=== PATIENT | male | born 2000 | race Caucasian/White ===

== ENCOUNTER → 2021-03-24 | Outpatient (CLI) | payer MEDICAID ==
[~2021-03-24] MED LIST: ACHD5005 PO; CEPH250S PO
== END ==
LOC: LABNPT 10:22
PROVIDERS: ATTEND Pediatrics
DX: L03.115 Cellulitis of right lower limb (principal)
CPT/HCPCS: 87070; 87205

== ENCOUNTER 2021-03-27 08:32 | Outpatient (RCR) | payer MEDICAID ==
[2021-03-25] MEDS: MEROPENEM 2 GM/NS 100 ML IVPB IV SCH ×4 (09:44→20:26)
[2021-03-25 09:52] VITALS: BP 143/73
[2021-03-25 21:13] VITALS: BP 148/79
[2021-03-26] MEDS: MEROPENEM 2 GM/NS 100 ML IVPB IV SCH ×4 (08:51→21:08)
[2021-03-26 08:55] VITALS: BP 128/69
[2021-03-26 21:10] VITALS: BP 134/86
[~2021-03-27] VITALS: Ht 187 cm; Wt 120.0 kg
[2021-03-27 08:30] VITALS: BP 138/81
[2021-03-27] MEDS: MEROPENEM 2 GM/NS 100 ML IVPB IV SCH ×4 (09:23→21:59)
[2021-03-27 22:59] VITALS: BP 154/76
== END 2021-06-23 | disposition home or self-care (01) ==
LOC: SDC 08:32
PROVIDERS: ATTEND Pediatrics
DX: L03.115 Cellulitis of right lower limb (principal)
CPT/HCPCS: 96365

== ENCOUNTER → 2021-04-02 | Outpatient (CLI) | payer MEDICAID ==
--- NOTE | 2021-04-02 10:02 | Diagnostic Imaging Report ---
INDICATION: Pain status post injury. COMPARISON: None. FINDINGS: Multiple radiographic views of the right tibia and fibula were obtained and show no fractures, dislocations, or other acute bony abnormalities. No lytic or blastic osseous lesions are identified. Joint spaces are well maintained throughout. The soft tissues appear unremarkable. No radiopaque foreign bodies are identified. IMPRESSION: Unremarkable radiographic exam of the right tibia and fibula. Please note, osteomyelitis cannot be excluded based on radiographs alone. If there is concern for osteomyelitis, MRI is recommended. Dictated by: Dictated on workstation # [id number]
== END ==
LOC: RAD 08:51
PROVIDERS: ATTEND Pediatrics
DX: S81.831A Puncture wound without foreign body, right lower leg, initial encounter (principal)
CPT/HCPCS: 73590

== ENCOUNTER 2021-07-15 05:48 | Outpatient (CLI) | payer MEDICAID ==
[~2021-07-15] VITALS: Ht 193 cm; Wt 116.6 kg
== END 2021-07-21 08:48 | disposition home or self-care (01) ==
LOC: PREOP 05:48
PROVIDERS: ATTEND Surgery
DX: Z01.818 Encounter for other preprocedural examination (principal)

== ENCOUNTER 2021-07-22 09:24 | Day surgery (SDC) | payer MEDICAID ==
[~2021-07-22] VITALS: Ht 193 cm; Wt 116.6 kg
[2021-07-22] VITALS (11 sets, daily range): BP systolic 111–138; BP diastolic 48–83
[2021-07-22] MEDS ORDERED: ceFAZolin 2 GM IV Premixed 50 ML IV ONE (09:45)
[2021-07-22] MEDS ORDERED: LACTATED RINGERS 1,000 ML IV PRN (09:45)
--- NOTE | 2021-07-22 10:20 | Progress Note-Pre Operative ---
Pre-Operative Progress Note H&P Reviewed The H&P was reviewed, patient examined and no changes noted. Time Seen by Provider: 10:18 Date H&P Reviewed: Jul 22, 2021 Time H&P Reviewed: :18 Pre-Operative Diagnosis: Left wrist mass, site marked ANTIONETTE TENA DO Jul 22, 2021 10:20
[2021-07-22] MEDS ORDERED: MIDAZOLAM 2 MG/2 ML (VERSED) VIAL IVP ONE (10:30)
[2021-07-22] MEDS ORDERED: SCOPOLAMINE 1.5 MG (TRANSDERM-SCOP) PATCH TD ONE (10:30)
[2021-07-22] MEDS ORDERED: FAMOTIDINE 20MG/2ML IV (PEPCID) IVP ONE (10:30)
[2021-07-22] MEDS ORDERED: ONDANSETRON 4 MG/2 ML (SDV) Z0FRAN IVP ONE (10:30)
[2021-07-22] MEDS ORDERED: LIDOCAINE/EPI 1%-1:100,000 (XYLOCAINE) 20ML ONE (12:03)
[2021-07-22] MEDS ORDERED: proPOfol 200 MG/20 ML (DIPRIVAN) VIAL IV ONE (12:25)
[2021-07-22] MEDS ORDERED: ONDANSETRON 4 MG/2 ML (SDV) Z0FRAN ONE (12:25)
[2021-07-22] MEDS ORDERED: fentaNYL INJ 100 MCG/2 ML AMP ONE (12:25)
[2021-07-22] MEDS ORDERED: MIDAZOLAM 2 MG/2 ML (VERSED) VIAL ONE (12:25)
[2021-07-22] MEDS ORDERED: LIDOCAINE PF 2% 5 ML (XYLOCAINE) VIAL ONE (12:25)
--- NOTE | 2021-07-22 13:09 | Progress Note-Post Operative ---
Post-Operative Progess Note Surgeon (s)/Neurophysiology Tech (s) Surgeon ANTIONETTE TENA DO Neurophysiology Tech: YELENA Gerard Pre-Operative Diagnosis Left wrist mass, site marked Post-Operative Diagnosis Same, probable ganglion cyst Procedure & Operative Findings Date of Procedure 07/22/21 Procedure Performed/Findings Exc left wrist mass, probable ganglion cyst Anesthesia Type LMA Estimated Blood Loss Estimated blood loss (mL): scant Specimens/Packing Specimens Removed left wrist mass ANTIONETTE TENA DO Jul 22, 2021 13:09
--- NOTE | 2021-07-22 13:10 | Discharge Inst-Surgical ---
Discharge Inst-Surgical Depart Medication/Instructions New, Converted or Re-Newed RX: Other (Take Ibuprofen and Tylenol at home for pain) Patient Instructions Follow up Appt: Make appointment for 1 week. [phone] Instructions: No lifting greater than 20 pounds. No strenuous activity. May shower in 24 hours, no tub bath or soaking. Use incentive spirometer at home as directed. No Smoking Skin/Wound Care: May remove bandages in am. You need to leave the sutures in place and come in to the office to remove them. Symptoms to Report: Appetite Changes, Extremity Discoloration, Numbness/Tingling, Swelling Increase d, Bleeding Excessive, Eyesight Changes, Pain Increased, Urine Color Change, Constipation(Persistent), Fever over 101 degree F, Pain/Pressure in chest, Urinating Difficulty, Cough Up/Vomit Blood, Heart Beat Irreg/Pounding, Pain/Pressure in jaw, Cramps in feet or legs, Lightheadedness, Pain/Pressure in shoulder, Diarrhea(Persistent), Memory Changes Suddenly, Questions/Concerns, Weight gain consecutive days, Dizziness/Fainting, Nausea/Vomiting, Shortness of Breath, Weight gain over 2 pounds If questions or concerns contact your physician Or seek help at emergency department. Activity Activity as Tolerated: Yes Activity Instructions: Avoid Stress to Incision Driving Instructions: You May Drive Diet Discharge Diet: No Restrictions Diet After 24 Hours: Clear Liquid if Nauseous If Any Problems/Questions/Issu: Contact Your Physician, Go to Emergency Room Skin/Wound Care Infection Signs and Symptoms: Increased Redness, Foul Odor of Wound, Increased Drainage, Skin Itchy or Has a Rash, Increased Swelling, Temperature Above 101 F Bathing Instructions: Shower Ice Pack: Ice On and Off Site ANTIONETTE TENA DO Jul 22, 2021 13:10
[2021-07-22] MEDS ORDERED: SEVOFLURANE (ULTANE) 15 ML INHAL SOLN ONE (13:21)
--- NOTE | 2021-07-22 13:48 | Anesthesia-General Post-Op ---
General Patient Condition Mental Status/LOC: Same as Preop Cardiovascular: Satisfactory Nausea/Vomiting: Absent Respiratory: Satisfactory Pain: Controlled Complications: Absent Post Op Complications Complications None Follow Up Care/Instructions Patient Instructions None needed. Anesthesia/Patient Condition Patient Condition Patient is doing well, no complaints, stable vital signs, no apparent adverse anesthesia problems. No complications reported per nursing. ROXY TELLES CRNA Jul 22, 2021 13:48
[2021-07-22] MEDS ORDERED: ONDANSETRON 4 MG/2 ML (SDV) Z0FRAN IVP PRN (14:00)
[2021-07-22] MEDS ORDERED: PROMETHAZINE INJ 25 MG/ML (PHENERGAN) AMP IVP ONE (14:00)
[2021-07-22] MEDS ORDERED: HYDROmorphone 2 MG/ML VIAL (DILAUDID) IV ONE (14:00)
[2021-07-22] MEDS ORDERED: morphine INJ 10 MG/ML 1ML (SYR OR VIAL) IVP ONE (14:00)
--- NOTE | 2021-07-23 23:19 | OPERATIVE REPORT ---
DATE OF SERVICE: 07/22/2021 PREOPERATIVE DIAGNOSIS: Left wrist mass. POSTOPERATIVE DIAGNOSIS: Left wrist mass, pending pathology. PROCEDURE: Excision of left wrist mass, palpable ganglion cyst. SURGEON: Edd Gama DO CREDIT SUPPORT COUNSELOR: Ramsey Collins MS3. ANESTHESIA: LMA. SPECIMEN: Left wrist mass. BLOOD LOSS: Scant. FLUIDS: Per anesthesia. POSTOPERATIVE CONDITION: Stable. INDICATION FOR PROCEDURE: The patient is a 20-year-old male who has a mass in the left wrist on the plantar aspect just above the thumb pad, removed and sent to pathology. PROCEDURE NOTE: After informed consent was obtained, the patient was brought to the operating room, placed on the table in supine position. He was sterilely prepped and draped in normal fashion. Local lidocaine was used to infiltrate the skin directly above and around this mass, used approximately 10 mL of local, then made an incision with a #15 blade, carried down through the skin into subcutaneous tissue, then deepened down to subcutaneous tissue gently with blunt dissection as well as with Bovie electrocautery, used a hemostat to get down around this. This looked like it may have been a ganglion cyst, started trying to gently move everything out of the way, moving some small veins, dissecting down around this while spreading with the hemostat, made a small hole and got out some clear, almost clear jelly looking substance, grasped this, what looked like a cyst with a hemostat and continued to carefully dissect under and around this, able to finally get this completely removed. There was some minimal bleeding. This was controlled with Bovie electrocautery as well as pressure. Copiously irrigated with normal saline and then elected to close the incision, closing just the skin with 3-0 Prolene 3 vertical mattress sutures. Area was cleaned and dried, dressing placed. The patient tolerated the procedure. Sponge, instrument and needle count correct at the end of the case. Job ID: [id number] DocumentID: [id number] Dictated Date: 07/23/2021 20:16:50 Composing Room Machinist Date: 07/23/2021 23:18:28 Dictated By: EDD GAMA DO MTDD
== END 2021-07-22 15:45 | disposition home or self-care (01) ==
LOC: SDC 09:24
PROVIDERS: ATTEND Surgery
DX: M67.432 Ganglion, left wrist (principal); G43.909 Migraine, unspecified, not intractable, without status migrainosus
CPT/HCPCS: 87081

== ENCOUNTER 2022-01-29 12:18 | Emergency (ER) | payer OTHER, MEDICAID ==
[~2022-01-29] VITALS: Ht 193 cm; Wt 102.0 kg
[2022-01-29 12:30] VITALS: BP 133/74
--- NOTE | 2022-01-29 12:38 | ED Upper Extremity ---
General Chief Complaint: Upper Extremity Stated Complaint: L HAND INJ / PAIN Source: patient Exam Limitations: no limitations History of Present Illness Date Seen by Provider: Jan 29, 2022 Time Seen by Provider: 12:36 Initial Comments To ER with left hand injury. He was at work for bug away at a client's house. The wind caught the door and slammed shut on his left hand where he now has bruising swelling and pain over the dorsal aspect of the fifth MCP joint. No other injury. He does have a small abrasion as well. Onset: just prior to arrival Severity: moderate Pain/Injury Location: left hand Method of Injury: direct blow Modifying Factors: Worse With Movement Allergies and Home Medications Allergies Coded Allergies: No Known Drug Allergies (Unverified , 02/25/11) Patient Home Medication List Home Medication List Reviewed: Yes No Active Prescriptions or Reported Meds Review of Systems Constitutional: see HPI EENTM: see HPI Respiratory: no symptoms reported Cardiovascular: no symptoms reported Genitourinary: no symptoms reported Musculoskeletal: no symptoms reported Skin: no symptoms reported Psychiatric/Neurological: No Symptoms Reported Past Sqtshcd-Xczoll-Tlnxut Hx Immunizations Up To Date Tetanus Booster (TDap): Less than 5yrs PED Vaccines UTD: Yes First/Initial COVID19 Vaccinat: NO Seasonal Allergies Seasonal Allergies: No Past Medical History Surgeries: Yes (WISDOM TEETH) Respiratory: No Cardiac: No Neurological: Yes (HEADACHES (SINUS)) Headaches /Migraines Genitourinary: No Gastrointestinal: No Musculoskeletal: No Endocrine: No HEENT: Yes (WEARS GLASSES) Loss of Vision: Denies Hearing Impairment: Denies Cancer: No Psychosocial: No Integumentary: No Blood Disorders: No Family Medical History No Pertinent Family Hx Physical Exam Vital Signs Vital Signs - First Documented 01/29/22 12:30 Temp 36.3 Pulse 78 Resp 16 B/P (MAP) 133/74 (93) Pulse Ox 97 O2 Delivery Room Air Capillary Refill : Height, Weight, BMI Height: 5'10" Weight: 190lbs. oz. 86.033663jp; 31.30 BMI Method: General Appearance: WD/WN, no apparent distress HEENT: PERRL/EOMI, normal ENT inspection Neck: non-tender, full range of motion Respiratory: no respiratory distress, no accessory muscle use Gastrointestinal: normal bowel sounds, non tender, soft Hand: Left, limited ROM, swelling (Ecchymosis, swelling limited range of motion at the dorsal aspect left fifth MCP joint. Normal sensation capillary refill at the fingertip. Just proximal to this over the lateral aspect of the hypothenar eminence is a small abrasion.) Neurologic/Tendon: normal sensation, normal motor functions Neurologic/Psychiatric: alert, normal mood/affect, oriented x 3 Skin: normal color, warm/dry Progress/Results/Core Measures Results/Orders My Orders Orders - ALEXIA CAI APRN Hand, Left, 3 Views (01/29/22 12:35) Vital Signs/I&O 01/29/22 12:30 Temp 36.3 Pulse 78 Resp 16 B/P (MAP) 133/74 (93) Pulse Ox 97 O2 Delivery Room Air Departure Impression Primary Impression: Contusion of hand Disposition: 01 HOME, SELF-CARE Condition: Stable Departure-Patient Inst. Decision time for Depature: 12:52 Referrals: KALINA CASTELLANO MD (PCP/Family) Primary Care Physician Patient Instructions: Contusion (DC) Add. Discharge Instructions: ice pack to the area Tylenol and ibuprofen for pain return to ER for any concerns see your doctor next week. All discharge instructions reviewed with patient and/or family. Voiced understanding. Scripts No Active Prescriptions or Reported Meds ALEXIA CAI APRN Jan 29, 2022 12:38
--- NOTE | 2022-01-29 12:59 | Diagnostic Imaging Report ---
Indication: Left hand pain. 3 views of the left hand demonstrate no fracture or dislocation. Articular surfaces are normal. No bony erosion seen. There is no foreign body. Impression: No fracture or dislocation. Dictated by: Dictated on workstation # [id number]
== END 2022-01-29 13:17 | disposition home or self-care (01) ==
LOC: EDUNIT# 12:18 → ER 12:19
DX: S60.222A Contusion of left hand, initial encounter (principal); W23.1XXA Caught, crushed, jammed, or pinched between stationary objects, initial encounter; Y92.59 Other trade areas as the place of occurrence of the external cause; Y99.0 Civilian activity done for income or pay
CPT/HCPCS: 73130

== ENCOUNTER 2022-03-29 11:08 | Emergency (ER) | payer MEDICAID ==
[~2022-03-29] VITALS: Ht 193 cm; Wt 104.0 kg
[2022-03-29] MEDS ORDERED: MUPIROCIN 2% OINT 22 GM (BACTROBAN) TUBE TOP ONE (12:00)
--- NOTE | 2022-03-29 12:30 | ED Upper Extremity ---
General Chief Complaint: Upper Extremity Stated Complaint: SORE ON LEFT WRIST Nursing Triage Note: Pt had cyst removed from L wrist previously, pt has noted some bubbling and possible new cyst on L wrist. Pt requesting to have area drained. Source: patient Exam Limitations: no limitations History of Present Illness Date Seen by Provider: Mar 29, 2022 Time Seen by Provider: 12:20 Initial Comments This is a well-appearing 21-year-old male who presents to the ER for complaints of cyst on his left wrist and pain. States that this has been present for the past month however it is having increasing pain. He had the cyst drained and removed by Dr. Gama a few months ago. No fever, chills, nausea, vomiting, redness to the surrounding tissue. Allergies and Home Medications Allergies Coded Allergies: No Known Drug Allergies (Unverified , 02/25/11) Patient Home Medication List Home Medication List Reviewed: Yes No Active Prescriptions or Reported Meds Review of Systems Constitutional: no symptoms reported Skin: see HPI Past Gluximo-Ctcfcz-Gqtbmi Hx Immunizations Up To Date Tetanus Booster (TDap): Less than 5yrs PED Vaccines UTD: Yes First/Initial COVID19 Vaccinat: NO Seasonal Allergies Seasonal Allergies: No Past Medical History Surgeries: Yes (WISDOM TEETH) Respiratory: No Cardiac: No Neurological: Yes (HEADACHES (SINUS)) Headaches /Migraines Genitourinary: No Gastrointestinal: No Musculoskeletal: No Endocrine: No HEENT: Yes (WEARS GLASSES) Loss of Vision: Denies Hearing Impairment: Denies Cancer: No Psychosocial: No Integumentary: No Blood Disorders: No Family Medical History No Pertinent Family Hx Physical Exam Vital Signs Vital Signs - First Documented 03/29/22 11:38 Temp 37.1 Pulse 59 Resp 18 B/P (MAP) 126/77 (93) Pulse Ox 97 O2 Delivery Room Air Capillary Refill : Less Than 3 Seconds Height, Weight, BMI Height: 5'10" Weight: 190lbs. oz. 86.308242bv; 27.00 BMI Method: General Appearance: WD/WN, no apparent distress HEENT: PERRL/EOMI, normal ENT inspection Neck: full range of motion, normal inspection Respiratory: no respiratory distress, no accessory muscle use Shoulder: normal inspection, no evidence of injury Elbow/Forearm: normal inspection, no evidence of injury Wrist: Yes normal ROM, Yes pain (left wrist ganglion cyst and base of thumb on left wrist ) Hand: normal inspection, no evidence of injury Neurologic/Tendon: normal sensation, normal motor functions Neurologic/Psychiatric: no motor/sensory deficits, alert, normal mood/affect, oriented x 3 Skin: normal color, warm/dry Procedures/Interventions I&D : Blade Size: Blunt tip needle I & D Procedure: betadine prep Progress Clean site with saline and soap, dried, applied iodine over the ganglion cyst, utilized a blunt tipped needle to penetrate the cyst, was able to express small amount of clear viscous drainage. Tolerated well. Progress/Results/Core Measures Results/Orders My Orders Orders - FERNANDA SCHULTZ APRN Mupirocin Ointment (Bactroban Ointment (03/29/22 12:00) Vital Signs/I&O Blood Pressure Mean: 93 Progress Progress Note : Progress Note Site was cleansed with iodine swabs, sterile technique utilized to insert blunt tipped needle into center of cyst, removed quite a bit of viscous clear drainage. Departure Impression Primary Impression: Ganglion cyst Disposition: 01 HOME, SELF-CARE Condition: Improved Departure-Patient Inst. Decision time for Depature: 12:27 Referrals: KALINA CASTELLANO MD (PCP/Family) Primary Care Physician Patient Instructions: Ganglion Cyst (DC) Add. Discharge Instructions: Plan: 1. Follow up with Dr. Gama for any persistent symptoms. 2. We did make an incision in your wrist, monitor for signs of infection: redness, swelling, drainage, fever. Follow up with your doctor or return if symptoms develop. 3. Wash gently daily with mild soap and water and apply Mupirocin ointment to prevent infection until site closes. 4. Return for any new, concerning, or worsening symptoms. All discharge instructions reviewed with patient and/or family. Voiced underst anding. Scripts No Active Prescriptions or Reported Meds FERNANDA SCHULTZ APRN Mar 29, 2022 12:30
[2022-03-29 12:35] VITALS: BP 126/77
== END 2022-03-29 12:35 | disposition home or self-care (01) ==
LOC: EDUNIT# 11:08 → ER 11:10
DX: M67.432 Ganglion, left wrist (principal); Z28.311 Partially vaccinated for COVID-19

== ENCOUNTER 2023-04-25 19:55 | Emergency (ER) | payer OTHER, MEDICAID ==
[~2023-04-25] VITALS: Ht 190.5 cm; Wt 99.7 kg
--- NOTE | 2023-04-25 20:07 | ED Lower Extremity ---
General Chief Complaint: Lower Extremity Stated Complaint: FALL/RIGHT ANKLE INJURY Source: patient Exam Limitations: no limitations History of Present Illness Date Seen by Provider: Apr 25, 2023 Time Seen by Provider: 20:07 Initial Comments 22-year-old male presents to the emergency room with a chief complaint of right lateral ankle pain. He was working in a home as he works for a [employer] company and slid down a flight of about 12 stairs. He states his right leg went behind him and ankle twisted. He has been able to bear weight. He states he has had prior fracture to the ankle without operative repair. He denies numbness weakness or tingling. Denies knee injury. No back pain. No head injury reported, no loss of consciousness. Onset: this evening Severity: moderate Pain/Injury Location: right ankle Method of Injury: fell Modifying Factors: Improves With Immobilization; Worse With Movement Allergies and Home Medications Allergies Coded Allergies: No Known Drug Allergies (Unverified , 02/25/11) Patient Home Medication List Home Medication List Reviewed: Yes No Active Prescriptions or Reported Meds Review of Systems Constitutional: see HPI EENTM: No blurred vision, No double vision Respiratory: No no symptoms reported Cardiovascular: No no symptoms reported Gastrointestinal: No no symptoms reported Musculoskeletal: No back pain; joint pain (right lateral ankle); No neck pain Skin: No no symptoms reported Psychiatric/Neurological: Denies Headache, Denies Numbness, Denies Paresthesia Past Beozmmf-Tqcoeg-Dqeliz Hx Immunizations Up To Date Tetanus Booster (TDap): Less than 5yrs PED Vaccines UTD: Yes First/Initial COVID19 Vaccinat: NO Second COVID19 Vaccination Enrico: NO Third COVID19 Vaccination Date: NO Seasonal Allergies Seasonal Allergies: No Past Medical History Surgeries: Yes (WISDOM TEETH) Respiratory: No Cardiac: No Neurological: Yes (HEADACHES (SINUS)) Headaches /Migraines Genitourinary: No Gastrointestinal: No Musculoskeletal: No Endocrine: No HEENT: Yes (WEARS GLASSES) Loss of Vision: Denies Hearing Impairment: Denies Cancer: No Psychosocial: No Integumentary: No Blood Disorders: No Family Medical History No Pertinent Family Hx Physical Exam Vital Signs Vital Signs - First Documented 04/25/23 20:00 Pulse 84 B/P (MAP) 144/84 (104) Pulse Ox 97 O2 Delivery Room Air Capillary Refill : Height, Weight, BMI Height: 5'10" Weight: 190lbs. oz. 86.531087bn; 27.00 BMI Method: General Appearance: WD/WN, no apparent distress HEENT: PERRL/EOMI Neck: full range of motion Cardiovascular: regular rate, rhythm Respiratory: lungs clear, normal breath sounds, no respiratory distress, no accessory muscle use Back: normal inspection, no vertebral tenderness Hips: bilateral hip normal range of motion Legs: bilateral leg normal range of motion Knees: bilateral knee non-tender, bilateral knee normal inspection, bilateral knee normal range of motion, bilateral knee no evidence of injury Ankles: left ankle non-tender, left ankle normal inspection, left ankle normal range of motion, left ankle no evidence of injury; right ankle limited range of motion, right ankle pain, right ankle swelling (mild lateral malleolar tenderness and swelling) Feet: bilateral foot non-tender, bilateral foot normal inspection, bilateral foot no evidence of injury Neurologic/Tendon: normal sensation, normal motor functions, normal tendon functions Neurologic/Psychiatric: alert, normal mood/affect, oriented x 3 Skin: normal color, warm/dry, other (small abrasion just above the lateral malleolus lat right ankle - appears old) Progress/Results/Core Measures Results/Orders My Orders Orders - ELIE FONSECA MD Ankle, Right, 3 Views (04/25/23 20:12) Ibuprofen Tablet (Motrin Tablet) (04/25/23 20:15) Vital Signs/I&O 04/25/23 20:00 Pulse 84 B/P (MAP) 144/84 (104) Pulse Ox 97 O2 Delivery Room Air Progress Progress Note : Time: 20:39 Progress Note Patient seen and evaluated by me. Evaluation today includes physical exam, three-view x-ray of the right ankle. Pertinent physical exam findings, well- developed well-nourished male in no acute distress. Tenderness to palpation over the lateral malleolus of the right ankle with mild swelling. Limited range of motion due to pain. Ankle joint is stable. Small abrasion noted just superior and anterior to the malleolus, this appears old. Distal neurovascularly intact to the right foot. Differential diagnosis based on history and physical, ankle sprain versus fibular fracture 3 views of the right ankle reviewed and interpreted by me. No fracture or dislocation or abnormalities noted in the ankle joint. Patient is treated with an Will wrap. He is given 800 mg of ibuprofen in the emergency department. Advised to elevate and ice the ankle over the next 24 hours. Ambulation is encouraged. No indications for crutches. Patient is given return precautions and both verbal and written format. All questions are sought and answered. Diagnostic Imaging Diagonstic Imaging: Xray Comments 3v right ankle x ray - reviewed and independently interpreted by me - no fra cture or dislocation. Departure Impression Primary Impression: Sprain and strain of ankle Disposition: HOME, SELF-CARE Condition: Stable Departure-Patient Inst. Decision time for Depature: 20:36 Referrals: NO,LOCAL PHYSICIAN (PCP/Family) Primary Care Physician Patient Instructions: Ankle Sprain ED Add. Discharge Instructions: Elevate the ankle/leg over the next 24 hours while at rest. Ice packs off and on over the next 24 hours for swelling. Use it 20 min at a time 4-6 times a day. Ibuprofen 800mg (4 over the counter advil or motrin) every 8 hours with food as needed for pain. If you have any other new, concerning or emergent complaints please return to the Emergency Department for re-evaluation. Scripts No Active Prescriptions or Reported Meds ELIE FONSECA MD Apr 25, 2023 20:07
[2023-04-25] MEDS ORDERED: IBUPROFEN 800 MG (MOTRIN) TAB PO ONE (20:15)
--- NOTE | 2023-04-25 20:37 | Diagnostic Imaging Report ---
INDICATION: 22-year-old male with right ankle pain after falling down a flight of stairs. COMPARISONS: None FINDINGS:: 3 views of the right ankle show no evidence of new or healing fractures, bony destruction or remodeling. The right ankle mortise is preserved. IMPRESSION: No fracture or subluxation seen with an intact right ankle mortise. Dictated by: Dictated on workstation # [id number]
[2023-04-25 20:44] VITALS: BP 144/84
== END 2023-04-25 20:44 | disposition home or self-care (01) ==
LOC: EDUNIT# 19:55 → ER 19:57
DX: S93.401A Sprain of unspecified ligament of right ankle, initial encounter (principal); S96.911A Strain of unspecified muscle and tendon at ankle and foot level, right foot, initial encounter; Z28.310 Unvaccinated for COVID-19; X50.1XXA Overexertion from prolonged static or awkward postures, initial encounter; Y92.009 Unspecified place in unspecified non-institutional (private) residence as the place of occurrence of the external cause; Y99.0 Civilian activity done for income or pay
CPT/HCPCS: 73610